=== PATIENT | female | born 1970 | race Caucasian/White ===

== ENCOUNTER 2018-10-13 15:47 | Emergency (ER) | payer BC ==
[2018-10-13 15:58] VITALS: RESP 18; TEMP 98.2
--- NOTE | 2018-10-13 16:30 | ED ---
General Adult HPI - General Chief complaint: Chest Pain Stated complaint: Chest pain, SOB Time Seen by Provider: 10/13/18 16:02 Source: patient Mode of arrival: wheelchair Limitations: no limitations - History of Present Illness Initial comments: Dictation was produced using [employer] dictation software. please excuse any grammatical, word or spelling errors. Chief Complaint: 47-year-old female presents with multiple days of chest pain and shortness of breath. History of Present Illness: 47-year-old female presents with chest pain and shortness of breath. Patient states that this episode started at approximately 9 AM this morning. She went to work. She states it started while she was 5. She describes the pain as chest pressure like. She also complains of some cardiac chest pain as well. Denies any history of blood clots. She does have a history of COPD and thyroid disease. She tried her inhaler without much improvement. Denies any lower extremity symptoms. Patient states that she does have some left shoulder pain as well that she thought was bursitis concerned and headache. Denies any neuro deficits. No diaphoresis. No nausea or vomiting. She states her pain is worse when she leans forward. The ROS documented in this emergency department record has been reviewed and confirmed by me. Those systems with pertinent positive or negative responses have been documented in the HPI. All other systems are other negative and/or noncontributory. PHYSICAL EXAM: General Impression: Alert and oriented x3, not in acute distress HEENT: Normocephalic atraumatic, extra-ocular movements intact, pupils equal and reactive to light bilaterally, mucous membranes moist. Cardiovascular: Heart regular rate and rhythm, S1&S2 audible, no murmurs, rubs or gallops Chest: Lungs clear to auscultation bilaterally, no rhonchi, no wheeze, no rales Abdomen: Bowel sounds present, abdomen soft, non-tender, non-distended, no organomegaly Musculoskeletal: Pulses present and equal in all extremities, no peripheral edema Motor: no focal deficits noted Neurological: CN II-XII grossly intact, no focal motor or sensory deficits noted Skin: Intact with no visualized rashes Psych: Normal affect and mood ED course: 47-year-old female presents with chest pain or shortness of breath. Vital signs upon arrival are within acceptable limits. Laboratory evaluation obtained. CBC, coag panel, d-dimer is negative. Met abolic panel is unremarkable. Cardiac enzymes negative. Chest x-ray is unremarkable. Patient's click or presentation consistent with atypical presentation with typical features. Discussed with patient that I would recommend three-hour troponin or observation admission with serial troponins and possible cardiac stress test in the morning. She states that she feels like her symptoms are not worrisome. Patient to be discharge. Patient told that she should return immediately if she begins experiencing any worsening symptoms including chest pain, shortness of breath, especially if they include nausea, diaphoresis or radiation of symptoms to the bilateral shoulders. At this point patient appears well and comfortable at this time. She is given 1 dose of aspirin. Patient told to follow-up with primary care physician and cardiology for outpatient cardiac stress test. Patient understandable agreeable to plan. EKG interpretation: Ventricular rate 64, normal sinus rhythm, DE interval 148, QS 106, QTC 46. No DE prolongation, no QTC prolongation, no ST or T-wave changes noted. No old EKG for comparison. Incomplete right bundle branch block. Overall, this EKG is unremarkable - Related Data Home Medications Medication Instructions Recorded Confirmed No Known Home Medications 10/13/18 10/13/18 Allergies Allergy/AdvReac Type Severity Reaction Status Date / Time procaine [From Novocain] Allergy Swelling Verified 10/13/18 16:51 Review of Systems ROS Statement: Those systems with pertinent positive or pertinent negative responses have been documented in the HPI. ROS Other: All systems not noted in ROS Statement are negative. 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 ] Respiratory 18 Rate Blood Pressure 136/75 O2 Sat by Pulse 97 Oximetry Medical Decision Making - Lab Data Result diagrams: 10/13/18 16:25 10/13/18 16:25 Lab Results 10/13/18 10/13/18 10/13/18 Range/Units 16:25 16:25 16:25 WBC 7.6 (3.8-10.6) k/uL RBC 4.33 (3.80-5.40) m/uL Hgb 12.7 (11.4-16.0) gm/dL Hct 37.3 (34.0-46.0) % MCV 86.0 (80.0-100.0) fL MCH 29.4 (25.0-35.0) pg MCHC 34.2 (31.0-37.0) g/dL RDW 12.7 (11.5-15.5) % Plt Count 353 (150-450) k/uL Neutrophils % 63 % Lymphocytes % 29 % Monocytes % 5 % Eosinophils % 2 % Basophils % 0 % Neutrophils # 4.8 (1.3-7.7) k/uL Lymphocytes # 2.2 (1.0-4.8) k/uL Monocytes # 0.4 (0-1.0) k/uL Eosinophils # 0.1 (0-0.7) k/uL Basophils # 0.0 (0-0.2) k/uL PT 10.3 (9.0-12.0) sec INR 1.0 (<1.2) APTT 23.2 (22.0-30.0) sec D-Dimer 0.27 (<0.60) mg/L FEU Sodium 139 (137-145) mmol/L Potassium 3.9 (3.5-5.1) mmol/L Chloride 107 (98-107) mmol/L Carbon Dioxide 24 (22-30) mmol/L Anion Gap 8 mmol/L BUN 13 (7-17) mg/dL Creatinine 0.49 L (0.52-1.04) mg/dL Est GFR (CKD-EPI)AfAm >90 (>60 ml/min/1.73 sqM) Est GFR (CKD-EPI)NonAf >90 (>60 ml/min/1.73 sqM) Glucose 91 (74-99) mg/dL Calcium 9.4 (8.4-10.2) mg/dL Magnesium 1.8 (1.6-2.3) mg/dL Total Bilirubin 1.1 (0.2-1.3) mg/dL AST 27 (14-36) U/L ALT 31 (9-52) U/L Alkaline Phosphatase 73 (38-126) U/L Troponin I (0.000-0.034) ng/mL Total Protein 6.8 (6.3-8.2) g/dL Albumin 4.0 (3.5-5.0) g/dL Lipase 45 (23-300) U/L 10/13/18 Range/Units 16:25 WBC (3.8-10.6) k/uL RBC (3.80-5.40) m/uL Hgb (11.4-16.0) gm/dL Hct (34.0-46.0) % MCV (80.0-100.0) fL MCH (25.0-35.0) pg MCHC (31.0-37.0) g/dL RDW (11.5-15.5) % Plt Count (150-450) k/uL Neutrophils % % Lymphocytes % % Monocytes % % Eosinophils % % Basophils % % Neutrophils # (1.3-7.7) k/uL Lymphocytes # (1.0-4.8) k/uL Monocytes # (0-1.0) k/uL Eosinophils # (0-0.7) k/uL Basophils # (0-0.2) k/uL PT (9.0-12.0) sec INR (<1.2) APTT (22.0-30.0) sec D-Dimer (<0.60) mg/L FEU Sodium (137-145) mmol/L Potassium (3.5-5.1) mmol/L Chloride (98-107) mmol/L Carbon Dioxide (22-30) mmol/L Anion Gap mmol/L BUN (7-17) mg/dL Creatinine (0.52-1.04) mg/dL Est GFR (CKD-EPI)AfAm (>60 ml/min/1.73 sqM) Est GFR (CKD-EPI)NonAf (>60 ml/min/1.73 sqM) Glucose (74-99) mg/dL Calcium (8.4-10.2) mg/dL Magnesium (1.6-2.3) mg/dL Total Bilirubin (0.2-1.3) mg/dL AST (14-36) U/L ALT (9-52) U/L Alkaline Phosphatase (38-126) U/L Troponin I <0.012 (0.000-0.034) ng/mL Total Protein (6.3-8.2) g/dL Albumin (3.5-5.0) g/dL Lipase (23-300) U/L Disposition Clinical Impression: Chest pain Disposition: HOME SELF-CARE Condition: Good Instructions (If sedation given, give patient instructions): Chest Pain (ED) Is patient prescribed a controlled substance at d/c from ED?: No Referrals: None,Stated [Primary Care Provider] - 1-2 days Javier Conti MD [STAFF PHYSICIAN] - 1-2 days Time of Disposition: 17:31
[2018-10-13 16:39] LABS: Basophils % (A) 0 %; Eosinophils # (A) 0.1 k/uL (0-0.7); Eosinophils % (A) 2 %; HCT 37.3 % (34.0-46.0); HGB 12.7 gm/dL (11.4-16.0); Lymphocytes # (A) 2.2 k/uL (1.0-4.8); Lymphocytes % (A) 29 %; MCH 29.4 pg (25.0-35.0); MCHC 34.2 g/dL (31.0-37.0); Mean Platelet Volume 6.2; Monocytes # (A) 0.4 k/uL (0-1.0); Monocytes % (A) 5 %; Neutrophils # (A) 4.8 k/uL (1.3-7.7); Neutrophils % (A) 63 %; Platelet Count 353 k/uL (150-450); RBC 4.33 m/uL (3.80-5.40); RDW 12.7 % (11.5-15.5); WBC 7.6 k/uL (3.8-10.6)
[2018-10-13 16:53] LABS: D-Dimer 0.27 mg/L FEU (<0.60); Partial Thromboplastin Time 23.2 sec (22.0-30.0); Prothrombin Time 10.3 sec (9.0-12.0)
[2018-10-13 16:58] LABS: ALT 31 U/L (9-52); AST 27 U/L (14-36); Alkaline Phosphatase 73 U/L (38-126); Anion Gap 8 mmol/L; Blood Urea Nitrogen 13 mg/dL (7-17); Calcium 9.4 mg/dL (8.4-10.2); Carbon Dioxide 24 mmol/L (22-30); Chloride 107 mmol/L (98-107); Glucose 91 mg/dL (74-99); Lipase 45 U/L (23-300); Magnesium 1.8 mg/dL (1.6-2.3); Potassium 3.9 mmol/L (3.5-5.1); Sodium 139 mmol/L (137-145); Total Bilirubin 1.1 mg/dL (0.2-1.3); Total Protein 6.8 g/dL (6.3-8.2)
--- NOTE | 2018-10-13 17:01 | XR ---
EXAMINATION TYPE: XR chest 2V DATE OF EXAM: 10/13/2018 COMPARISON: NONE HISTORY: Chest pain TECHNIQUE: Frontal and lateral views of the chest are obtained. FINDINGS: Heart and mediastinum are normal. Lungs are clear. Diaphragm is normal. Bony thorax appear s normal. IMPRESSION: Normal chest
[2018-10-13] MEDS ORDERED: ASPIRIN 81 MG PO STA (17:28)
[2018-10-13 17:48] VITALS: BP 129/75; PULSE 75
== END 2018-10-13 17:47 | disposition home or self-care (01) ==
LOC: EC 15:47
DX: R07.89 Other chest pain (principal); R06.02 Shortness of breath; M25.512 Pain in left shoulder; R51 Headache; Z87.09 Personal history of other diseases of the respiratory system; Z87.891 Personal history of nicotine dependence; Z88.4 Allergy status to anesthetic agent
CPT/HCPCS: 36415; 71046; 80053; 83690; 83735; 84484; 85025; 85379; 85610; 85730; 93005; 99285

== ENCOUNTER → 2018-12-17 | Outpatient (CLI) | payer BC ==
[2018-12-17 10:41] LABS: Basophils % (A) 1 %; Eosinophils # (A) 0.2 k/uL (0-0.7); Eosinophils % (A) 3 %; Lymphocytes # (A) 1.6 k/uL (1.0-4.8); Lymphocytes % (A) 26 %; MCH 27.8 pg (25.0-35.0); MCHC 32.6 g/dL (31.0-37.0); MCV 85.2 fL (80.0-100.0); Mean Platelet Volume 7.3; Monocytes # (A) 0.4 k/uL (0-1.0); Monocytes % (A) 6 %; Neutrophils # (A) 3.9 k/uL (1.3-7.7); Neutrophils % (A) 63 %; Platelet Count 376 k/uL (150-450); RBC 4.69 m/uL (3.80-5.40); RDW 13.5 % (11.5-15.5); WBC 6.2 k/uL (3.8-10.6)
[2018-12-17 17:44] LABS: Cholesterol 130 mg/dL (0-200); Triglycerides <50.0 mg/dL (0.0-149.0); VLDL Calculation 9.98 mg/dL (5.00-40.00)
[2018-12-17 17:45] LABS: ALT 29 U/L (8-44); AST 22 U/L (13-35); Albumin/Globulin Ratio 1.95 (1.60-3.17); Alkaline Phosphatase 74 U/L (41-126); Calcium 8.9 mg/dL (8.7-10.3); Carbon Dioxide 22.5 mmol/L (21.6-31.8); Chloride 110 mmol/L (96-109); Globulin 2.2 g/dL (1.6-3.3); Glucose 93 mg/dL (70-110); Potassium 4.2 mmol/L (3.5-5.5); Sodium 139 mmol/L (135-145); Total Bilirubin 1.4 mg/dL (0.2-1.2); Total Protein 6.5 g/dL (6.2-8.2)
== END ==
LOC: LABWHC1 08:42
PROVIDERS: ATTEND Family Medicine
DX: Z00.00 Encounter for general adult medical examination without abnormal findings (principal); J44.9 Chronic obstructive pulmonary disease, unspecified; E05.90 Thyrotoxicosis, unspecified without thyrotoxic crisis or storm
CPT/HCPCS: 36415; 80053; 80061; 84439; 84443; 84481; 85025; 86376; 86800

== ENCOUNTER → 2018-12-29 | Outpatient (CLI) | payer BC ==
--- NOTE | 2018-12-29 18:02 | US ---
EXAMINATION TYPE: US venous doppler duplex LE LT DATE OF EXAM: 12/29/2018 5:49 PM COMPARISON: NONE CLINICAL HISTORY: Left leg swelling and pain. Left knee pain and left leg swelling x 3 days. Pt not o n blood thinners. No Hx DVT. SIDE PERFORMED: Left TECHNIQUE: The lower extremity deep venous system is examined utilizing real time linear array sonog jesu with graded compression, doppler sonography and color-flow sonography. VESSELS IMAGED: External Iliac Vein (EIV) Common Femoral Vein Deep Femoral Vein Greater Saphenous Vein * Femoral Vein Popliteal Vein Proximal Calf Veins (* superficial vessels) Left Leg: No evidence of DVT in the left lower extremity at this time. IMPRESSION: . No evidence of deep venous thrombosis in the left leg. Negative exam.
== END | disposition home or self-care (01) ==
LOC: RADUSWWP 17:16
PROVIDERS: ATTEND Family Medicine
DX: M25.562 Pain in left knee (principal); M79.89 Other specified soft tissue disorders

== ENCOUNTER → 2019-01-20 | Outpatient (CLI) | payer BC ==
[2019-01-20 13:53] LABS: Basophils % (A) 1 %; Eosinophils # (A) 0.1 k/uL (0-0.7); Eosinophils % (A) 2 %; HCT 40.5 % (34.0-46.0); HGB 13.6 gm/dL (11.4-16.0); Lymphocytes # (A) 1.7 k/uL (1.0-4.8); Lymphocytes % (A) 30 %; MCH 28.4 pg (25.0-35.0); MCHC 33.5 g/dL (31.0-37.0); MCV 84.8 fL (80.0-100.0); Mean Platelet Volume 7.2; Monocytes # (A) 0.2 k/uL (0-1.0); Monocytes % (A) 4 %; Neutrophils # (A) 3.6 k/uL (1.3-7.7); Neutrophils % (A) 62 %; Platelet Count 361 k/uL (150-450); RBC 4.78 m/uL (3.80-5.40); RDW 13.6 % (11.5-15.5); WBC 5.8 k/uL (3.8-10.6)
[2019-01-20 16:31] LABS: Erythrocyte Sedimentation Rate 13 mm/hr (0-20)
[2019-01-20 19:24] LABS: Rheumatoid Factor 9 IU/mL (0-15)
[2019-01-20 19:35] LABS: C Reactive Protein 0.5 mg/dL (0.0-0.8)
[2019-01-20 19:59] LABS: Anti-DNA, DS unit <1.0 IU/mL; DNA Double-Stranded NEGATIVE (NEGATIVE)
[2019-01-21 08:25] LABS: HLA B27 NEGATIVE
== END | disposition home or self-care (01) ==
LOC: LABWHC1 12:42
PROVIDERS: ATTEND Orthopaedic Surgery
DX: M25.50 Pain in unspecified joint (principal)
CPT/HCPCS: 36415; 84550; 85025; 85613; 85652; 85730; 86038; 86140; 86225; 86431; 86812

== ENCOUNTER → 2019-01-27 | Outpatient (CLI) | payer BC ==
--- NOTE | 2019-01-27 16:01 | MR ---
EXAMINATION TYPE: MR knee LT wo con DATE OF EXAM: 01/27/2019 COMPARISON: Outside x-rays of the left knee dated 01/18/2019 HISTORY: Left knee pain localized to the patella TECHNIQUE: Multiplanar, multisequence imaging of the left knee is performed without IV contrast. FINDINGS: MEDIAL MENISCUS: Anterior and posterior horns are intact without tear. However there is increased sig nal in the anterior and posterior horns indicative of myxoid degeneration. LATERAL MENISCUS: Anterior and posterior horns are intact without tear. There is increased signal wit hin the anterior horn indicative of myxoid degeneration. CRUCIATE LIGAMENTS: The anterior and posterior cruciate ligaments are intact. However there is increa sed signal throughout the anterior cruciate ligament indicative of mid grade sprain. COLLATERAL LIGAMENTS: The medial collateral ligament and lateral collateral ligament complex are inta ct and unremarkable. EXTENSOR MECHANISM: Visualized quadriceps and patellar tendons are intact. There is slight increased signal within the quadriceps tendon without discontinuity and in the insertional fibers of the patell ar tendon. EFFUSION: No significant suprapatellar joint effusion. POPLITEAL CYST: Very small popliteal cyst is present that is unilocular. TRICOMPARTMENT SPACES: No joint space narrowing is seen. CARTILAGE: Partial-thickness chondral defects are seen of the lateral compartment measuring 2.0 cm an d 1.0 cm of the posterior weightbearing surface and medial weightbearing surface respectively. Genera lized cartilaginous thinning is seen of the medial compartment with partial-thickness defects measuri ng 0.8 cm in the anterior weightbearing surface and 0.7 cm of the posterior weightbearing surface. No focal cartilaginous defects are seen of the patellofemoral compartment. BONE MARROW SIGNAL: There is a bone island appearing markably T2 hypointense within the medial tibial plateau that is well-circumscribed. Mild tibial plateau sclerosis is also seen without bone marrow e candis on fluid sensitive sequences. IMPRESSION: 1. Mid grade sprain of the anterior cruciate ligament without discontinuity. 2. 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 3. Mild tricompartmental chondrosis with partial-thickness defects as detailed above. 4. Findings suggesting mild insertional fiber quadricep tendinosis and insertional fiber patellar ten dinosis.
== END ==
LOC: RADMRIMAIN 06:23
PROVIDERS: ATTEND Orthopaedic Surgery
DX: S83.512A Sprain of anterior cruciate ligament of left knee, initial encounter (principal); M23.307 Other meniscus derangements, unspecified meniscus, left knee; M25.862 Other specified joint disorders, left knee

== ENCOUNTER 2019-03-10 09:09 | Day surgery (SDC) | payer BC ==
[2019-01-19 11:54] VITALS: BMI 26.3
[~2019-03-10 09:09] MED LIST: LACTATED RINGERS 1,000 ML IV SCH
[2019-03-10 10:15] VITALS: RESP 18; TEMP 98.3
[2019-03-10] MEDS ORDERED: PROPOFOL 10 MG/ML 20 ML VIAL IV ONE ×2 (11:08→11:31)
--- NOTE | 2019-03-10 11:29 | P.GSHP ---
History of Present Illness H&P Date: 03/10/19 Chief Complaint: Family history of colonic cancer Is a 48-year-old female who presents today for colonoscopy. Patient is a family history of colon cancer. Patient states her mother had colon cancer Past Medical History Past Medical History: Asthma, Chest Pain / Angina, Musculoskeletal Disorder, Thyroid Disorder Additional Past Medical History / Comment(s): HX CP, HAD STRESS TEST; PLANS SLEEP STUDY. LT KNEE PAIN. HYPERTHYROID, NO CURRENT RX. History of Any Multi-Drug Resistant Organisms: None Reported Past Surgical History: No Surgical Hx Reported, Tonsillectomy Additional Past Surgical History / Comment(s): COLONOSCOPY, TONSILLECTOMY A CHILD Past Anesthesia/Blood Transfusion Reactions: No Reported Reaction Additional Past Anesthesia/Blood Transfusion Reaction / Comment(s): NOVOCAINE CAUSED EXCESS EDEMA OF MOUTH W/ DENTAL PROC. Past Psychological History: No Psychological Hx Reported Smoking Status: Never smoker Past Alcohol Use History: Occasional Additional Past Alcohol Use History / Comment(s): SMOKED AGE 18 FOR 1 YEAR, 1/2 PPD. Past Drug Use History: None Reported - Past Family History Father Family Medical History: Cancer Additional Family Medical History / Comment(s): ESOPHAGEAL CANCER Mother Family Medical History: Cancer Additional Family Medical History / Comment(s): COLON CA; HER DAUGHTER HAS ULCERATIVE COLITIS. Medications and Allergies Home Medications Medication Instructions Recorded Confirmed Type Albuterol Inhaler [Ventolin Hfa 1 - 2 puff INHALATION RT-Q6H PRN 01/19/19 03/10/19 History Inhaler] HYDROcodone/APAP 5-325MG [[place] 1 tab PO Q6HR PRN 01/19/19 03/10/19 History 5-325] Ibuprofen [Motrin] 800 mg PO Q8H PRN 01/19/19 03/10/19 History Allergies Allergy/AdvReac Type Severity Reaction Status Date / Time procaine [From Novocain] Allergy Swelling Verified 03/10/19 10:18 Surgical - Exam Vital Signs Temp Pulse Resp BP Pulse Ox 98.3 F 88 18 144/63 97 03/10/19 10:13 03/10/19 10:13 03/10/19 10:13 03/10/19 10:13 03/10/19 10:13 - General well developed, well nourished, no distress - Eyes PERRL - ENT normal pinna - Neck no masses - Respiratory normal expansion - Cardiovascular Rhythm: regular - Abdomen Abdomen: soft, non tender Assessment and Plan Assessment: Family history of colonic cancer we'll perform colonoscopy.
[2019-03-10] MEDS ORDERED: LIDOCAINE 1% INJ 10MG/ML (20 ML MDV) ONE (11:31)
--- NOTE | 2019-03-10 11:54 | P.OP ---
Date of Procedure: 03/10/19 Preoperative Diagnosis: Family history of colon cancer Postoperative Diagnosis: Normal colonoscopy Procedure(s) Performed: Colonoscopy Anesthesia: MAC Surgeon: Cong Frederick Pathology: none sent Condition: stable Disposition: PACU Description of Procedure: PROCEDURE: The patient was placed on the endoscopy table in the lateral position. Digital rectal examination was performed which revealed no abnormalities. . Flexible colonoscope was then placed in the patient's anus and passed throughout the entire colon. The ileocecal valve was visualized. The cecum, ascending, transverse, descending and sigmoid colon were normal. The rectum was normal as well. There were no masses, polyps or diverticula noted in the entire colon. SUMMARY OF FINDINGS: Normal colonoscopy.
[2019-03-10 12:16] VITALS: BP 120/79; PULSE 71
== END 2019-03-10 12:27 | disposition home or self-care (01) ==
LOC: ORWHC2ENDO 09:09
PROVIDERS: ATTEND Surgery
DX: Z12.11 Encounter for screening for malignant neoplasm of colon (principal); Z80.0 Family history of malignant neoplasm of digestive organs; F17.210 Nicotine dependence, cigarettes, uncomplicated; J45.909 Unspecified asthma, uncomplicated; Z79.899 Other long term (current) drug therapy; Z88.8 Allergy status to other drugs, medicaments and biological substances; Z80.8 Family history of malignant neoplasm of other organs or systems
CPT/HCPCS: 81025; J2001; J2704; G0105

== ENCOUNTER → 2019-03-15 | Outpatient (CLI) | payer BC ==
[2019-03-15 15:36] LABS: Basophils % (A) 0 %; Eosinophils # (A) 0.2 k/uL (0-0.7); Eosinophils % (A) 2 %; HGB 14.1 gm/dL (11.4-16.0); Lymphocytes # (A) 2.3 k/uL (1.0-4.8); Lymphocytes % (A) 29 %; MCH 29.1 pg (25.0-35.0); MCHC 33.5 g/dL (31.0-37.0); MCV 86.8 fL (80.0-100.0); Mean Platelet Volume 6.7; Monocytes # (A) 0.4 k/uL (0-1.0); Monocytes % (A) 5 %; Neutrophils # (A) 5.1 k/uL (1.3-7.7); Neutrophils % (A) 62 %; Platelet Count 396 k/uL (150-450); RBC 4.84 m/uL (3.80-5.40); WBC 8.2 k/uL (3.8-10.6)
[2019-03-15 15:49] LABS: Potassium 4.6 mmol/L (3.5-5.1)
== END | disposition home or self-care (01) ==
LOC: LABPAT 15:13
PROVIDERS: ATTEND Orthopaedic Surgery
DX: Z01.812 Encounter for preprocedural laboratory examination (principal); M23.92 Unspecified internal derangement of left knee
CPT/HCPCS: 36415; 80051; 85025

== ENCOUNTER 2019-03-17 10:09 | Day surgery (SDC) | payer BC ==
--- NOTE | 2019-03-16 10:31 | HP ---
HISTORY AND PHYSICAL CHIEF COMPLAINT: Left knee pain. HISTORY OF PRESENT ILLNESS: The patient is a 48-year-old female who presents with progressive left knee pain for the past several months. She notes stiffness, swelling, and giving way. She has tried medications in addition to therapy and an injection with only partial temporary relief. PAST MEDICAL HISTORY: Significant for hypothyroidism. PAST SURGICAL HISTORY: Negative. CURRENT MEDICATIONS: 1. Ibuprofen. 2. Goodman. ALLERGIES: She has allergies to NOVOCAIN. FAMILY HISTORY: Significant for cancer. SOCIAL HISTORY: Significant for social alcohol use. REVIEW OF SYSTEMS: Sixteen-point review of systems otherwise reviewed and is noncontributory. PHYSICAL EXAMINATION: On examination, the patient is approximately 5 feet 5 inches, 163 pounds of mesomorphic habitus. HEENT exam is nonfocal. Neck is supple. She has painless passive motion of her left hip. Straight leg raise is negative. Active motion left knee -14 to 100 degrees of flexion. She has a moderate effusion. She is tender about the medial joint line. Collaterals are stable, Linda is negative, Larissa's is equivocal. Her distal neurovascular exam appears intact in the left lower extremity. MRI report left knee from 01/27/2019 shows a questionable chondral defect involving the medial femoral condyle in addition to ACL sprain and increased signal of the posterior medial meniscus. IMPRESSION: 1. Left knee internal derangement with possible medial meniscal tear/medial femoral condyle chondral injury. 2. Left knee moderate medial compartment osteoarthrosis. RECOMMENDATIONS: I talked to the patient at length regarding her condition along with treatment options. At this point, she is quite symptomatic, having pain and mechanical symptoms despite conservative measures. After thorough discussion, she opts to proceed with surgery. We will plan to proceed with arthroscopic evaluation of the left knee with possible partial medial meniscectomy in addition to possible medial femoral chondrectomy and microfracture. Risks and benefits were discussed at length in layman's terms. We will likely perform that as an outpatient procedure. MMODL / IJN: [id number] /
[2019-03-16 11:25] VITALS: BMI 26.9
[~2019-03-17 10:09] MED LIST changes: +DEXAMETHASONE SOD PHOSPHATE 10 MG/ML 1 ML VIAL IV ONE; +MIDAZOLAM 2 MG/2 ML VIAL IV PRN; +ONDANSETRON 4 MG/2 ML VIAL IVP ONE; +SCOPOLAMINE 1.5MG/72HR PATCH TRANSDERM ONE
[2019-03-17] MEDS ORDERED: PROPOFOL 10 MG/ML 20 ML VIAL IV ONE (12:13)
[2019-03-17] MEDS ORDERED: MIDAZOLAM 2 MG/2 ML VIAL ONE (12:13)
[2019-03-17] MEDS ORDERED: fentaNYL (PF) 50 MCG/ML 2 ML AMP ONE (12:13)
[2019-03-17] MEDS ORDERED: EPINEPHrine (PF) 1 ML in SODIUM CHLORIDE 0.9% IRRIGATIO 3,000 ML IRRIGATION ONE ×2 (12:34→12:35)
--- NOTE | 2019-03-17 12:50 | P.OP ---
Date of Procedure: 03/17/19 Preoperative Diagnosis: Left knee internal derangement Postoperative Diagnosis: Left knee grade 2 chondral injury distal medial femoral condyle/posterior lateral meniscal tear Procedure(s) Performed: Left knee arthroscopic medial femoral chondrectomy/partial lateral meniscectomy Anesthesia: NNAMDI Surgeon: Erik Robles Estimated Blood Loss (ml): 10 Pathology: none sent Condition: stable Disposition: PACU Indications for Procedure: Patient is a 48-year-old female who presents with progressive left knee pain and mechanical symptoms despite conservative measures. A discussion of the risks and benefits of operative intervention versus continued conservative measures was made with patient. She opted to proceed with surgery. Operative risks to include infection, neurovascular injury, development of blood clots, possible incomplete resolution of symptoms, possible worsening symptoms and need for subsequent procedures was discussed. Informed consent was obtained. Operative Findings: As below Description of Procedure: The patient was brought to the operating room, and after induction of general anesthesia examined the left knee. Collaterals were stable, Linda was negative, and posterior drawer was negative. The left lower extremity was prepped and draped in a normal fashion. A superior lateral portal was made through a 3 mm skin incision superior and lateral to the patella. This was used for outflow. A lateral portal was made through a 5 mm vertical skin incision lateral to the patella tendon above the joint line. Diagnostic arthroscopy was performed. On inspection of the medial compartment, the medial meniscus was stable and intact. A grade 2 chondral injury was noted involving the distal medial portion medial femoral condyle. This measured approximately 4 x 5 mm. There was a loose chondral fragment debrided back to stable base with motorized shaver. On inspection of the notch, the anterior cruciate ligament appeared to be intact. On inspection of the lateral compartment an oblique tear involving the posterior lateral meniscus was noted in the white-white junction. This was debrided back to stable base with straight basket and motorized shaver. On inspection of the patellofemoral articulation, no significant cartilage pathology was noted. The gutters were clear debris. The knee was then thoroughly irrigated. The portals were closed with Steri-Strips. A sterile d ressing was applied in addition to a compression stocking. The patient was awoken from general anesthesia and transferred to recovery room in good condition. Blood loss was estimated at 10 mL. No complications were incurred.
[2019-03-17] MEDS: HYDROmorphone 0.5 MG/0.5 ML SYRINGE IVP PRN ×4 (13:03→13:23)
[2019-03-17 13:07] VITALS: TEMP 97.6
[2019-03-17] MEDS ORDERED: LACTATED RINGERS 1,000 ML IV ONE (13:39)
[2019-03-17 13:47] VITALS: RESP 16
[2019-03-17] MEDS ORDERED: HYDROcodone/APAP 5-325MG 1 EACH TAB PO ONE (14:11)
[2019-03-17 14:22] VITALS: BP 125/79; PULSE 84
== END 2019-03-17 14:40 | disposition home or self-care (01) ==
LOC: OR 10:09
PROVIDERS: ATTEND Orthopaedic Surgery
DX: S83.282A Other tear of lateral meniscus, current injury, left knee, initial encounter (principal); S83.32XA Tear of articular cartilage of left knee, current, initial encounter; X58.XXXA Exposure to other specified factors, initial encounter; E03.9 Hypothyroidism, unspecified; Z88.4 Allergy status to anesthetic agent; J45.909 Unspecified asthma, uncomplicated; K21.9 Gastro-esophageal reflux disease without esophagitis; Z79.1 Long term (current) use of non-steroidal anti-inflammatories (NSAID); Z79.891 Long term (current) use of opiate analgesic; Z79.899 Other long term (current) drug therapy
CPT/HCPCS: 81025; 29881; J2250; J1100; J2405; J0690; J0171; J3010; J2704; J1170

== ENCOUNTER → 2019-05-26 | Outpatient (CLI) | payer BC | END | disposition home or self-care (01) | LOC: LABWHC1 13:21 | PROVIDERS: ATTEND Internal Medicine | DX: E05.90 Thyrotoxicosis, unspecified without thyrotoxic crisis or storm (principal) | CPT/HCPCS: 36415; 84439; 84443; 84481 ==